=== PATIENT | female | born 1945 | race African-American/Black ===

== ENCOUNTER 2021-09-03 16:26 | Emergency (ER) | payer OTHER ==
[~2021-09-03] VITALS: Ht 165.1 cm; Wt 88.5 kg
[2021-09-03] MEDS ORDERED: CEPH500T PO (16:47)
--- NOTE | 2021-09-03 16:50 | NUR ---
PT IIS IN ROOM #1A. DR MURRAY EVALUATED THE PT.
[2021-09-03] MEDS ORDERED: IBUPROFEN 600 MG TABLET PO ONE (17:00)
[2021-09-03] MEDS ORDERED: IBUPROFEN 600 MG TABLET ONE (17:34)
--- NOTE | 2021-09-03 18:01 | NUR ---
PT WAS D/C'd TO HOME. D/C INSTRUCTIONS GIVEN TO THE PT BY DR MURRAY.
[2021-09-03 18:02] VITALS: BP 140/79
== END 2021-09-03 18:03 | disposition home or self-care (01) ==
LOC: ER 16:28
DX: M25.572 Pain in left ankle and joints of left foot (principal); L03.116 Cellulitis of left lower limb; I10 Essential (primary) hypertension; R73.03 Prediabetes
CPT/HCPCS: 73610; 73630; A4663